=== PATIENT | female | born 1985 | race Two or more races ===

== ENCOUNTER 2020-11-13 12:15 | Inpatient (IN) | payer OTHER ==
[2020-11-13 15:23] LABS: BASO % 2.3 % (0-2.0); EOS % 0.5 % (0-4.5); HEMATOCRIT 42.7 % (32.4-45.2); HEMOGLOBIN 14.6 GM/dL (10.7-15.3); LYMPH % 39.3 % (8-40); MCH 32.2 pg (25.7-33.7); MCHC 34.3 g/dl (32.0-36.0); MEAN CELL VOLUME 93.8 fl (80-96); MEAN PLT VOLUME 10.7 fl (7.5-11.1); MONO % 4.1 % (3.8-10.2); NEUT % 53.8 % (42.8-82.8); PLATELET COUNT 199 10^3/uL (134-434); RBC 4.55 M/mm3 (3.60-5.2); RDW 13.6 % (11.6-15.6); WHITE BLOOD COUNT 6.8 K/mm3 (4.0-10.0)
[2020-11-13 15:29] LABS: INR 0.83 (0.83-1.09); PROTHROMBIN TIME (PATIENT) 10.2 SEC (9.7-13.0)
[2020-11-13 15:32] LABS: ACTIVATED PTT 30.7 SECONDS (25.2-36.5)
[2020-11-13 15:46] LABS: BLOOD UREA NITROGEN 17.1 mg/dL (7-18); CALCIUM 8.7 mg/dL (8.5-10.1)
[2020-11-13 15:50] LABS: CREATININE 0.7 mg/dL (0.55-1.3)
[2020-11-13 16:24] VITALS: BMI 31.0
[2020-11-13] MEDS ORDERED: DINOPROSTONE 10 MG VAGINAL SUPPOSITORY VG ONE (18:00)
[2020-11-13] MEDS ORDERED: ELECTROLYTE-148 SOLN 1,000 ML IV ONE (20:20)
[2020-11-13] MEDS ORDERED: PENICILLIN G POTASSIUM 20,000,000 (20Mm) UNITS VIAL IVPB ONE (20:33)
[2020-11-13] MEDS ORDERED: PENICILLIN G POTASSIUM 5,000,000 UNIT in DEXTROSE 5%-WATER 100 ML IVPB ONE (20:45)
[2020-11-14] MEDS: PENICILLIN POTASSIUM IVPB SCH ×3 (01:00→11:07)
[2020-11-14] MEDS: WATER IVPB SCH ×3 (01:00→11:07)
[2020-11-14] MEDS: DEXTROSE 5% IVPB SCH ×3 (01:00→11:07)
[2020-11-14] MEDS ORDERED: TERBUTALINE SULFATE 1 MG/1 ML VIAL SQ ONE ×2 (07:47→08:15)
[2020-11-14] MEDS ORDERED: OXYTOCIN 20 UNITS in 0.9% NS 40 UNIT/2,000 ML INFUS.BAG IV ONE (08:54)
[2020-11-14] MEDS ORDERED: ONDANSETRON 4 MG/2 ML VIAL ONE (08:58)
[2020-11-14] MEDS ORDERED: ceFAZolin SODIUM 1 GM VIAL ONE (08:58)
[2020-11-14] MEDS ORDERED: DEXAMETHASONE SOD PHOSPHATE 4 MG/1 ML VIAL ONE (08:58)
[2020-11-14] MEDS ORDERED: OXYTOCIN 10 UNIT/ML 10ML MDV ONE (09:28)
[2020-11-14] MEDS ORDERED: KETOROLAC TROMETHAMINE 30 MG/1 ML VIAL ONE (09:53)
[2020-11-14] MEDS ORDERED: IBUPROFEN 800 MG/8 ML IJ IVPB PRN (10:10)
[2020-11-14] MEDS ORDERED: METHYLERGONOVINE MALEATE 0.2 MG/1 ML AMP IM PRN (10:10)
[2020-11-14] MEDS ORDERED: OXYTOCIN 20 UNITS in 0.9% NS 20 UNIT/1,000 ML INFUS.BAG IV SCH (10:15)
[2020-11-14 10:16] LABS: CORD HCO3 22.8 mmHg (20-29); CORD HCO3 22.9 mmHg (20-29); CORD PCO2 52.8 mmHg (30-78); CORD PCO2 55.7 mmHg (30-78); CORD pH 7.232 (7.14-7.44); CORD pH 7.254 (7.14-7.44)
[2020-11-14] MEDS ORDERED: ONDANSETRON 4 MG/2 ML VIAL IVPUSH PRN (11:04)
[2020-11-14] MEDS ORDERED: ACETAMINOPHEN 1000 MG/100 ML VIAL (NON FORMULARY) IVPB PRN (11:05)
[2020-11-14] MEDS ORDERED: CITRIC ACID/SODIUM CITRATE 30 ML UNIT-DOSE CUP PO ONE (12:00)
[2020-11-14] MEDS: FERROUS SO4 325 MG TABLET (FP) PO SCH (17:05)
[2020-11-14] MEDS: IBUPROFEN 600 MG TABLET (FP) PO PRN (21:08)
[2020-11-14] MEDS: oxyCODONE HCL 5 MG TABLET PO PRN (21:10)
[2020-11-15] MEDS ORDERED: PENICILLIN G POTASSIUM 20,000,000 (20Mm) UNITS VIAL IVPB SCH (01:00)
[2020-11-15 09:14] LABS: BASO % 0.5 % (0-2.0); EOS % 0.3 % (0-4.5); HEMATOCRIT 33.9 % (32.4-45.2); HEMOGLOBIN 11.7 GM/dL (10.7-15.3); LYMPH % 19.3 % (8-40); MCH 32.5 pg (25.7-33.7); MCHC 34.6 g/dl (32.0-36.0); MEAN CELL VOLUME 93.9 fl (80-96); MEAN PLT VOLUME 9.6 fl (7.5-11.1); MONO % 6.1 % (3.8-10.2); NEUT % 73.8 % (42.8-82.8); PLATELET COUNT 147 10^3/uL (134-434); RBC 3.61 M/mm3 (3.60-5.2); RDW 14.2 % (11.6-15.6); WHITE BLOOD COUNT 10.4 K/mm3 (4.0-10.0)
[2020-11-15] MEDS: PRENATAL VITAMINS W/ FOLIC ACID TABLET (FP) PO SCH (09:27)
[2020-11-15] MEDS: FERROUS SO4 325 MG TABLET (FP) PO SCH ×2 (09:27→18:14)
[2020-11-15] MEDS ORDERED: BISACODYL 10 MG SUPP.RECT RC PRN (10:10)
[2020-11-15 11:53] LABS: HIV INTERPRETATION NEGATIVE (NEGATIVE)
[2020-11-15] MEDS: SIMETHICONE 80 MG TAB.CHEW (FP) PO PRN ×2 (14:13→20:06)
[2020-11-15] MEDS: oxyCODONE HCL 5 MG TABLET PO PRN ×2 (14:13→20:06)
[2020-11-15] MEDS ORDERED: ACETAMINOPHEN 500 MG TABLET (FP) PO PRN (18:11)
[2020-11-15] MEDS: SENNOSIDES/DOCUSATE COMBO (SENNA PLUS) TABLET (UD) PO PRN (20:07)
[2020-11-16] MEDS: oxyCODONE HCL 5 MG TABLET PO PRN (04:16)
[2020-11-16] MEDS: SIMETHICONE 80 MG TAB.CHEW (FP) PO PRN ×2 (04:16→09:08)
[2020-11-16] MEDS: FERROUS SO4 325 MG TABLET (FP) PO SCH ×2 (09:08→16:54)
[2020-11-16] MEDS: IBUPROFEN 600 MG TABLET (FP) PO PRN ×2 (09:08→15:57)
[2020-11-16] MEDS: PRENATAL VITAMINS W/ FOLIC ACID TABLET (FP) PO SCH (09:08)
[2020-11-17 07:50] LABS: BASO % 0.6 % (0-2.0); EOS % 1.5 % (0-4.5); HEMATOCRIT 36.1 % (32.4-45.2); HEMOGLOBIN 12.4 GM/dL (10.7-15.3); LYMPH % 27.5 % (8-40); MCH 32.1 pg (25.7-33.7); MCHC 34.2 g/dl (32.0-36.0); MEAN CELL VOLUME 93.7 fl (80-96); MEAN PLT VOLUME 9.1 fl (7.5-11.1); MONO % 3.5 % (3.8-10.2); NEUT % 66.9 % (42.8-82.8); PLATELET COUNT 217 10^3/uL (134-434); RBC 3.85 M/mm3 (3.60-5.2); RDW 13.9 % (11.6-15.6); WHITE BLOOD COUNT 9.4 K/mm3 (4.0-10.0)
[2020-11-17] MEDS: SIMETHICONE 80 MG TAB.CHEW (FP) PO PRN (07:59)
[2020-11-17] MEDS: FERROUS SO4 325 MG TABLET (FP) PO SCH ×2 (07:59→18:15)
[2020-11-17] MEDS: IBUPROFEN 600 MG TABLET (FP) PO PRN ×2 (08:00→20:59)
[2020-11-17] MEDS: PRENATAL VITAMINS W/ FOLIC ACID TABLET (FP) PO SCH (09:15)
[2020-11-17] MEDS: SENNOSIDES/DOCUSATE COMBO (SENNA PLUS) TABLET (UD) PO PRN (20:59)
[2020-11-18] MEDS: FERROUS SO4 325 MG TABLET (FP) PO SCH (10:02)
[2020-11-18] MEDS: PRENATAL VITAMINS W/ FOLIC ACID TABLET (FP) PO SCH (10:03)
[2020-11-18 11:32] VITALS: BP 136/85; PULSE 84; TEMP 97.6
== END 2020-11-18 11:40 | disposition home or self-care (01) | DRG 540 ==
LOC: JDEL 12:15 → JLDR 13:40 → J3W 11-14 12:45
PROVIDERS: ADMIT Obstetrics & Gynecology; ATTEND Obstetrics & Gynecology
PROC: 3E0P7VZ Introduction of Hormone into Female Reproductive, Via Natural or Artificial Opening (ICD-10-PCS; principal; 2020-11-13)
PROC: 10D00Z1 Extraction of Products of Conception, Low, Open Approach (ICD-10-PCS; 2020-11-14)
DX: O76 Abnormality in fetal heart rate and rhythm complicating labor and delivery (principal); O24.424 Gestational diabetes mellitus in childbirth, insulin controlled; Z3A.37 37 weeks gestation of pregnancy; Z37.0 Single live birth; Z86.19 Personal history of other infectious and parasitic diseases
CPT/HCPCS: 36415; 36600; 80048; 82803; 82962; 85025; 85610; 85730; 86780; 86850; 86900; 86901; 87389; C9803; U0003; U0005

== ENCOUNTER 2021-07-30 00:49 | Emergency (ER) | payer OTHER ==
[2021-07-30 01:49] VITALS: BP 158/94; PULSE 70; TEMP 98.7; BMI 32.1
[2021-07-30] MEDS ORDERED: TETRACAINE 0.5% HCL 0.6ML DROPPER.BOTTLE OD ONE (02:21)
[2021-07-30] MEDS ORDERED: FLUORESCEIN NA 1 EA STRIP NR ONE (02:21)
[2021-07-30] MEDS ORDERED: TETRACAINE 0.5% OPHTH SOLN 2 ML BOTTLE ONE (02:31)
== END 2021-07-30 04:10 | disposition home or self-care (01) ==
LOC: JER 00:49
DX: S05.51XA Penetrating wound with foreign body of right eyeball, initial encounter (principal); W45.8XXA Other foreign body or object entering through skin, initial encounter; Z77.098 Contact with and (suspected) exposure to other hazardous, chiefly nonmedicinal, chemicals
CPT/HCPCS: 99283-25